=== PATIENT | male | born 1945 | race Caucasian/White ===

== ENCOUNTER → 2020-10-18 | Outpatient (CLI) | payer MEDICARE, OTHER ==
[~2020-10-18] MED LIST: AUGMENTIN 875-1 EACH PO; DECADRON4 MG PO; ELIQUIS 5 MG TAB5 MG PO; LOPRESSOR 25 MG25 MG PO; MEDROL DOSEPAK 24 MG PO; PREDFORTE OP SUS5 ML OU; SYNTHROID 100100 MCG PO; TUSSIN COUGH PO; VIBRAMYCIN100 MG PO; ZESTRIL 40 MG T40 MG PO; ZYVOX600 MG PO
== END ==
LOC: KOH-I 11:19
DX: R06.02 Shortness of breath (principal)
CPT/HCPCS: 71250

== ENCOUNTER → 2021-04-21 | Outpatient (CLI) | payer MEDICARE | LOC: KOH-I 11:26 | DX: G47.33 Obstructive sleep apnea (adult) (pediatric) (principal); R91.1 Solitary pulmonary nodule | CPT/HCPCS: 71250 ==